=== PATIENT | female | born 1970 | race Caucasian/White ===

== ENCOUNTER 2016-10-20 11:35 | Emergency (ER) | payer OTHER ==
[2016-10-20 12:08] VITALS: BP 108/76
[2016-10-20] MEDS ORDERED: Albuterol/Ipratropium NEB.SOL* Albuterol 2.5 MG/Ipratropium 0.5 MG 3 ML INH ONE (12:45)
--- NOTE | 2016-10-20 13:18 | RAD ---
INDICATION: Cough and wheezing COMPARISON: None TECHNIQUE: PA and lateral views of the chest were obtained. FINDINGS: The heart and mediastinum are normal in size and contour. The lungs are grossly clear. There is no evidence of large pleural effusion. Visualized bones are normal for the patient's age. There is no radiographic evidence of free air beneath the diaphragm IMPRESSION: No radiographic evidence of acute cardiopulmonary disease.
--- NOTE | 2016-10-20 14:04 | UC ---
Throat Pain/Nasal Anthony HPI - HPI Summary HPI Summary: FOUR DAYS OF COUGH, WHEEZING, SINUS CONGESTION, EAR/FACIAL PRESSURE, NO FEVER, NO SORE THROAT. - History of Current Complaint Chief Complaint: UCRespiratory Stated Complaint: COUGH,CHEST CONGESTION Time Seen by Provider: 10/20/16 12:13 Hx Obtained From: Patient Hx Last Menstrual Period: 10/15/16 Onset/Duration: Gradual Onset, Lasting Days, Still Present Severity: Moderate Cough: Productive Associated Signs & Symptoms: Positive: Hoarseness, Sinus Discomfort, Nasal Discharge - Epiglottits Risk Factors Epiglottis Risk Factors: Negative - Allergies/Home Medications Allergies/Adverse Reactions: Allergies Allergy/AdvReac Type Severity Reaction Status Date / Time Ciprofloxacin Allergy Swelling Verified 02/21/16 20:42 Erythromycin Allergy Rash Verified 02/21/16 20:42 Home Medications: Home Medications Atorvastatin* [Lipitor 10 MG*] 10/20/16 [History] Dextromethorphan-Phenylephrine [Day Time Multi-Symptom Co 10-5-325 mg] [History] Levothyroxine TAB* [Synthroid 88 MCG TAB*] 10/20/16 [History] [id number]-Hb-[id number] W/ APAP [Delsym Cough + Cold D... 5-23-392-325 mg/10Ml] [History] PMH/Surg Hx/FS Hx/Imm Hx Previously Healthy: Yes Endocrine History Of: Reports: Thyroid Disease, Hypothyroidism Denies: Diabetes Cardiovascular History Of: Reports: Cardiac Disorders - high cholesterol Denies: Hypertension Respiratory History Of: Reports: Bronchitis Denies: COPD, Asthma GI/ History Of: Denies: Ulcer - Surgical History Surgical History: Yes Surgery Procedure, Year, and Place: TONSILLECTOMY, 2 c sections, hemorrhiod, carpal tunnel - Family History Known Family History: Positive: Cardiac Disease, Hypertension, Diabetes - Social History Occupation: Employed Full-time Lives: With Family Alcohol Use: Occasionally Substance Use Type: None Smoking Status (MU): Heavy Every Day Tobacco Smoker Household Exposure Type: Cigarettes Cessation Counseling: Counseled 3+Min - 10 Min Review of Systems Constitutional: Fatigue Skin: Negative Eyes: Negative ENT: Nasal Discharge Respiratory: Cough Cardiovascular: Negative Gastrointestinal: Negative Genitourinary: Negative Motor: Negative Neurovascular: Negative Musculoskeletal: Negative Neurological: Negative Psychological: Negative All Other Systems Reviewed And Are Negative: Yes Physical Exam Triage Information Reviewed: Yes Appearance: No Pain Distress, Well-Nourished, Ill-Appearing Vital Signs: Initial Vital Signs Temp 98.2 F 10/20/16 12:01 Pulse 75 10/20/16 12:01 Resp 18 10/20/16 12:01 BP 108/76 10/20/16 12:01 Pulse Ox 99 10/20/16 12:01 Vital Signs Reviewed: Yes Eye Exam: Normal Eyes: Positive: Conjunctiva Clear ENT: Positive: Hearing grossly normal, Pharynx normal, TM bulging, TM dull Dental Exam: Normal Neck exam: Normal Neck: Positive: Supple, Nontender, No Lymphadenopathy Respiratory: Positive: Chest non-tender, No respiratory distress, No accessory muscle use, Wheezing Cardiovascular Exam: Normal Cardiovascular: Positive: RRR, No Murmur, Pulses Normal, Brisk Capillary Refill Abdominal Exam: Normal Abdomen Description: Positive: Nontender, No Organomegaly Musculoskeletal Exam: Normal Musculoskeletal: Positive: Strength Intact, ROM Intact Neurological Exam: Normal Psychological Exam: Normal Psychological: Positive: Normal Response To Family Skin Exam: Normal Throat Pain/Nasal Course/Dx - Differential Dx/Diagnosis Differential Diagnosis/HQI/PQRI: Otitis Media, Pharyngitis, Sinusitis, Tonsillitis, URI Provider Diagnoses: SINUSITIS. BRONCHITIS. BRONCHOSPASM Discharge - Discharge Plan Condition: Stable Disposition: HOME Prescriptions: Albuterol HFA INHALER* [Ventolin HFA Inhaler*] 1 - 2 puff INH Q4H PRN #1 mdi PRN Reason: Wheezing Amoxicillin/Clavulanate TAB* [Augmentin TAB 875*] 875 mg PO BID #20 tab Patient Education Materials: Sinusitis (ED), Acute Bronchitis (ED), Bronchospasm (ED) Forms: *Work Release Referrals: [facility] [place] [facility] [Outside] No Primary Care Phys,NOPCP [Primary Care Provider] -
== END 2016-10-20 13:57 | disposition home or self-care (01) ==
LOC: UCEAST 11:35
DX: J32.9 Chronic sinusitis, unspecified (principal); J40 Bronchitis, not specified as acute or chronic; F17.210 Nicotine dependence, cigarettes, uncomplicated; E03.9 Hypothyroidism, unspecified; E78.00 Pure hypercholesterolemia, unspecified; Z88.3 Allergy status to other anti-infective agents
CPT/HCPCS: 71020; 99212; A9270-GY; G0463

== ENCOUNTER 2019-04-06 17:51 | Emergency (ER) | payer OTHER ==
[2019-04-06 18:11] VITALS: BP 161/95
[2019-04-06] MEDS ORDERED: Famotidine TAB* 20 MG PO ONE (18:22)
[2019-04-06] MEDS ORDERED: Al Hydrox/Mg Hydrox/Simet LIQ* 30 ML UDC PO ONE (18:22)
[2019-04-06] MEDS ORDERED: Lidocaine 2% VISCOUS* 15 ML UDC PO ONE (18:22)
--- NOTE | 2019-04-06 18:22 | UC ---
Abdominal Pain Female HPI - HPI Summary HPI Summary: 49 yo female presents with abdominal pain. She tells me that she has a history of GERD and takes daily omeprazole with good relief. On 04/04 she had an episode of severe nausea after eating and had some dry heaving, but no belly pain. Yesterday she felt fine. This morning she forgot to take her omeprazole. She ate lunch and had severe nausea about 30minutes after. She drank water and baking soda and felt a little bit better, but then about an hour later began to notice abdominal "bloating" and had RUQ and epigastric pain that was 5/10. As time progressed her pain became 8/10. She went home from work around 173- and took a gas-x with no relief - prompting her visit to . She last ate around 1130 this morning. She has not vomited, but feels nauseous. Denies fever, chills , SOB, chest pain, diarrhea, dysuria. - History of Current Complaint Chief Complaint: UCAbdominalPain Stated Complaint: ABDOMINAL PAIN Time Seen by Provider: 04/06/19 18:22 Hx Obtained From: Patient Hx Last Menstrual Period: 10/15/16 Onset/Duration: Sudden Onset Severity Initially: Moderate Severity Currently: Severe Pain Intensity: 9 Pain Scale Used: 0-10 Numeric Allergies/Adverse Reactions: Allergies Allergy/AdvReac Type Severity Reaction Status Date / Time ciprofloxacin [From Cipro] Allergy Intermediate Rash Verified 04/06/19 18:11 erythromycin base Allergy Rash Verified 04/06/19 18:11 Home Medications: Home Medications Valacyclovir HCl [Valtrex] 500 mg PO SEE INSTRUCTIONS 04/06/19 [History Confirmed 04/06/19] PMH/Surg Hx/FS Hx/Imm Hx Endocrine History: Hypothyroidism Respiratory History: Asthma GI/ History: Gastroesophageal Reflux - Surgical History Surgical History: Yes Surgery Procedure, Year, and Place: TONSILLECTOMY, 2 c sections, hemorrhiod, carpal tunnel - Family History Known Family History: Positive: Cardiac Disease, Hypertension, Diabetes - Social History Occupation: Employed Full-time Lives: With Family Alcohol Use: Weekly Substance Use Type: None Smoking Status (MU): Former Smoker Household Exposure Type: Cigarettes Review of Systems All Other Systems Reviewed And Are Negative: No Constitutional: Positive: Negative Skin: Positive: Negative Eyes: Positive: Negative ENT: Positive: Negative Respiratory: Positive: Negative Cardiovascular: Positive: Negative Gastrointestinal: Positive: Abdominal Pain, Nausea Genitourinary: Positive: Negative Neurological: Positive: Negative Psychological: Positive: Negative Physical Exam - Summary Physical Exam Summary: GENERAL: Moderate pain distress. Anxious. SKIN: No rashes, sores, lesions, or open wounds. NECK: Supple. Nontender. No lymphadenopathy. CHEST: CTAB. No r/r/w. No accessory muscle use. Breathing comfortably and in no distress. CV: RRR. Without m/r/g. Pulses intact. Cap refill <2seconds ABDOMEN: Significant RUQ TTP. Positive mejía sign. Slight abdominal guarding throughout. Mild epigastric TTP. No CVA tenderness. Bowel sounds present NEURO: Alert. PSYCH: Age appropriate behavior. Triage Information Reviewed: Yes Vital Signs: Initial Vital Signs Temp 97.7 F 04/06/19 18:06 Pulse 80 04/06/19 18:06 Resp 22 04/06/19 18:06 BP 161/95 04/06/19 18:06 Pulse Ox 100 04/06/19 18:06 Vital Signs Reviewed: Yes Abd Pain Female Course/Dx - Course Course Of Treatment: EKG 68bpm NSR. No ST changes as read by Dr. Bailey. Her history and exam is most consistent with biliary pathology - possible cholecystitis. I recommended transfer to the ED for further evaluation including likely labwork , imaging, and possible surgical consult. Pt was agreeable to this. She was given GI cocktail with pepcid, maalox, and viscous lidocaine with no change in her symptoms. She was then given 1L NS, 4mg zofran, and 4mg morphine with improvement of her discomfort. Andrés was called and she left via EMS in stable condition. - Differential Dx/Diagnosis Provider Diagnosis: RUQ pain Discharge ED - Sign-Out/Discharge Documenting (check all that apply): Patient Departure All imaging exams completed and their final reports reviewed: No Studies - Discharge Plan Condition: Stable Disposition: TRANS HIGHER LVL OF CARE FAC Referrals: No Primary Care Phys,NOPCP [Primary Care Provider] - - Billing Disposition and Condition Condition: STABLE Disposition: Trans Higher Lvl of Care Fac
[2019-04-06] MEDS ORDERED: Ondansetron INJ* 2 MG/ML VIAL IV ONE (18:52)
[2019-04-06] MEDS ORDERED: Morphine 4 MG/ML VIAL (1 ml) 4 MG/ML VIAL IV ONE (18:52)
[2019-04-06] MEDS ORDERED: NS 0.9% 1000 ML** 1,000 ML IV ONE (18:52)
[2019-04-06] MEDS ORDERED: Morphine 10 MG/ML VIAL (1 ml) IV ONE (19:00)
== END 2019-04-06 19:15 | disposition short-term general hospital (02) ==
LOC: UCEAST 17:51
DX: R10.11 Right upper quadrant pain (principal); E03.9 Hypothyroidism, unspecified; K21.9 Gastro-esophageal reflux disease without esophagitis; J45.909 Unspecified asthma, uncomplicated; Z87.891 Personal history of nicotine dependence
CPT/HCPCS: 96374; 96375; 99213; A9270-GY; G0463; J2270; J2405

== ENCOUNTER 2019-04-06 19:33 | Emergency (ER) | payer OTHER ==
[2019-04-06] MEDS ORDERED: Ondansetron INJ* 2 MG/ML VIAL IV ONE (20:21)
[2019-04-06] MEDS ORDERED: Ketorolac INJ* 15 MG/ML 1 ML VIAL IM ONE (20:21)
[2019-04-06] MEDS ORDERED: NS 0.9% 1000 ML** 1,000 ML IV ONE (20:21)
--- NOTE | 2019-04-06 20:21 | ED ---
Abdominal Pain/Female - HPI Summary HPI Summary: Patient is a 49 y/o F presenting to [facility] with complaints of RUQ/epigastric pain that onset today, 04/06/19, after lunch. She states that she had a healthy, non-fatty lunch. Pain radiates to her right flank area. Patient states that she had N/V with no abdominal pain two days ago, 04/04/19. Today, patient had nausea with no vomiting. She reports no similar prior episodes. Patient denies change in bowel movements, urinary Sx, chest pain, SOB. PMHx of hypothyroidism, HLD, and GERD noted. She states that she had taken GasX before arrival. Patient was evaluated at [facility] where she was given 4 mg Zofran and 4 mg morphine with mild relief. Patient has Hx of gallbladder polyps but still has gallbladder present. On triage, pain is rated 5/10. Home medications and allergies are reviewed. - History of Current Complaint Chief Complaint: EDAbdPain Stated Complaint: ABD PAIN PER EMS Hx Obtained From: Patient Hx Last Menstrual Period: 10/15/16 Onset/Duration: Lasting Hours, Still Present Timing: Hours Severity Currently: Moderate Pain Intensity: 5 Pain Scale Used: 0-10 Numeric Location: Discrete At: RUQ, Epigastric Radiates: Yes Radiates to: Flank - right Associated Signs and Symptoms: Positive: Nausea, Vomiting - none today, Other: - negative - SOB. Negative: Chest Pain, Constipation, Urinary Symptoms, Diarrhea Allergies/Adverse Reactions: Allergies Allergy/AdvReac Type Severity Reaction Status Date / Time ciprofloxacin [From Cipro] Allergy Intermediate Rash Verified 04/06/19 19:42 erythromycin base Allergy Rash Verified 04/06/19 19:42 PMH/Surg Hx/FS Hx/Imm Hx Endocrine/Hematology History: Reports: Hx Thyroid Disease Denies: Hx Diabetes Cardiovascular History: Denies: Hx Hypertension Respiratory History: Denies: Hx Asthma, Hx Chronic Obstructive Pulmonary Disease (COPD) GI History: Denies: Hx Ulcer - Surgical History Surgery Procedure, Year, and Place: TONSILLECTOMY, 2 c sections, hemorrhiod, carpal tunnel Infectious Disease History: No Infectious Disease History: Denies: Hx Clostridium Difficile, Hx Hepatitis, Hx Human Immunodeficiency Virus (HIV), Hx of Known/Suspected MRSA, Hx Shingles, Hx Tuberculosis, Hx Known/ Suspected VRE, Hx Known/Suspected VRSA, History Other Infectious Disease, Traveled Outside the [place] in Last 30 Days - Family History Known Family History: Positive: Cardiac Disease, Hypertension, Diabetes - Social History Alcohol Use: Weekly Substance Use Type: Reports: None Smoking Status (MU): Former Smoker Review of Systems Negative: Chest Pain Negative: Shortness Of Breath Gastrointestinal: Other - negative - changes in bowel movements Positive: Abdominal Pain, Vomiting, Nausea Positive: no symptoms reported - no urinary Sx reported All Other Systems Reviewed And Are Negative: Yes Physical Exam - Summary Physical Exam Summary: General: Well-developed, Well-nourished female. No acute distress. HEENT: Normocephalic, Atraumatic. Eyes: Conjuctiva normal, PERRL. Ears: TMs within normal limits. Nares: (-) discharge, (-) erythema. Oropharynx: Clear, mucous membranes moist, (-) exudates. Neck: Soft, FROM, (-) lymphadenopathy, (-) thyromegaly, (-) JVD. Cardiovascular: Normal sinus rhythm, (-) murmur. Lungs: Clear to auscultation bilaterally (-) wheezes, (-) rales, (-) rhonchi. Abdomen: Soft, RUQ tenderness, positive Pastrana's sign, non-distended, (-) organomegaly, normal bowel sounds. Back: (-) CVA tenderness Extremities: No edema. Skin: Warm, dry, (-) rash. Neuro: Alert and oriented x3, no focal deficits. Psychiatric: Mood normal, affect normal. Triage Information Reviewed: Yes Vital Signs On Initial Exam: Initial Vitals Temp Pulse Resp BP Pulse Ox 97.9 F 70 18 157/91 100 04/06/19 19:37 04/06/19 19:37 04/06/19 19:37 04/06/19 19:37 04/06/19 19:37 Vital Signs Reviewed: Yes Diagnostics - Vital Signs Vital Signs Temp Pulse Resp BP Pulse Ox 04/06/19 19:37 97.9 F 70 18 157/91 100 - Laboratory Result Diagrams: 04/06/19 20:32 04/06/19 20:32 Lab Statement: Any lab studies that have been ordered have been reviewed, and results considered in the medical decision making process. - CT CT ABD/PEL CT Interpretation Completed By: Radiologist Summary of CT Findings: IMPRESSION: There are echogenic calculi in the gallbladder lumen consistent with. cholelithiasis but no abnormal gallbladder wall thickening and negative. sonographic Pastrana's and therefore not specific for acute cholecystitis. THIS REPORT WAS REVIEWED BY DR. LACY. - Ultrasound ABDOMEN US Ultrasound Interpretation Completed By: Radiologist Summary of Ultrasound Findings: IMPRESSION: There are echogenic calculi in the gallbladder lumen consistent with. cholelithiasis but no abnormal gallbladder wall thickening and negative. sonographic Pastrana's and therefore not specific for acute cholecystitis. THIS REPORT WAS REVIEWED BY DR. LACY. Re-Evaluation - Re-Evaluation First Eval Re-Evaluation Time: 22:30 Change: Improved Comment: Sx are better after medications. Abdominal Pain Fem Course/Dx - Course Course Of Treatment: Patient is a 49 y/o F presenting to [facility] with complaints of RUQ/epigastric pain that onset today, 04/06/19, after lunch. She states that she had a healthy, non-fatty lunch. Pain radiates to her right flank area. Patient states that she had N/V with no abdominal pain two days ago, 04/04/19. Today, patient had nausea with no vomiting. She reports no similar prior episodes. Patient denies change in bowel movements, urinary Sx, chest pain, SOB. PMHx of hypothyroidism, HLD, and GERD noted. She states that she had taken GasX before arrival. Patient was evaluated at [facility] where she was given 4 mg Zofran and 4 mg morphine with mild relief. Patient has Hx of gallbladder polyps but still has gallbladder present. On physical exam, RUQ tenderness and positive Pastrana's sign noted. Bloodwork was obtained. Abnormal values include absolute neuts 8.4, glucose 104, AST 11, lipase < 10. Beta HCG was negative. UA was negative. ABDOMEN US IMPRESSION: There are echogenic calculi in the gallbladder lumen consistent with. cholelithiasis but no abnormal gallbladder wall thickening and negative. sonographic Pastrana's and therefore not specific for acute cholecystitis. THIS REPORT WAS REVIEWED BY DR. LACY. During ED course, patient was given Zofran 4 mg IV and toradol 15 mg IM. Sx are better after medications. Patient is discharged to home and will follow up with PCP within three days. - Diagnoses Provider Diagnoses: Biliary colic, Cholelithiasis Discharge ED - Sign-Out/Discharge Documenting (check all that apply): Patient Departure - discharge Patient Received Moderate/Deep Sedation with Procedure: No - Discharge Plan Condition: Stable Disposition: HOME Patient Education Materials: Biliary Colic (ED), Gallstones (ED) Referrals: Care [facility] [Outside] - 3 Days Additional Instructions: Please follow up with your primary care physician within three days. Please return to ED for any new or worsening symptoms. - Billing Disposition and Condition Condition: STABLE Disposition: Home - Attestation Statements Document Initiated by Kennedie: Yes Documenting Scribe: TELLY EGAN Provider For Whom Mary is Documenting (Include Credential): MARGARITA LACY MD Scribe Attestation: ITELLY, scribed for MARGARITA LACY MD on 04/08/19 at 2012. Scribe Documentation Reviewed: Yes Provider Attestation: The documentation as recorded by the scribeTELLY accurately reflects the service I personally performed and the decisions made by me, MARGARITA LACY MD Status of Scribe Document: Ready
[2019-04-06 20:40] LABS: ABS Basophils 0.1 10^3/ul (0-0.2); ABS Eosinophils 0.1 10^3/ul (0-0.6); ABS Lymphocytes 1.6 10^3/ul (1.0-4.8); ABS Monocytes 0.7 10^3/ul (0-0.8); ABS Neutrophils 8.4 10^3/ul (1.5-7.7); Eosinophil % 0.5 %; Hematocrit 37 % (35-47); Hemoglobin 12.9 g/dL (12.0-16.0); Lymphocyte % 14.6 %; Mean Corpuscular HGB Conc 35 g/dL (31-36); Mean Corpuscular Hemoglobin 31 pg (27-31); Mean Corpuscular Volume 88 fL (80-97); Nucleated Red Blood Cells % 0.1; Platelet Count 287 10^3/uL (150-450); Red Blood Count 4.18 10^6 /uL (3.70-4.87); Red Cell Distribution Width 14 % (10-15); White Blood Count 10.8 10^3/uL (3.5-10.8)
[2019-04-06 20:46] LABS: Urine Appearance Clear; Urine Bilirubin Negative (Negative); Urine Blood Negative (Negative); Urine Color Yellow; Urine Glucose Negative (Negative); Urine Ketones Negative (Negative); Urine Nitrite Negative (Negative); Urine Protein Negative (Negative); Urine Specific Gravity 1.009 (1.010-1.030); Urine Urobilinogen Negative (Negative)
[2019-04-06 21:03] LABS: HCG Pregnancy < 0.60 mIU/mL
[2019-04-06 21:22] LABS: ALT 9 U/L (7-52); AST 11 U/L (13-39); Albumin 4.3 g/dL (3.2-5.2); Alkaline Phosphatase 52 U/L (34-104); Anion Gap 6 mmol/L (2-11); BUN/Creatinine Ratio 17.2 (8-20); Blood Urea Nitrogen 10 mg/dL (6-24); CO2 Carbon Dioxide 28 mmol/L (22-32); Calcium 9.1 mg/dL (8.6-10.3); Chloride 106 mmol/L (101-111); EGFR African American 134.8 (>60); EGFR Non-African American 111.4 (>60); Globulin 2.2 g/dL (2-4); Glucose 104 mg/dL (70-100); Sodium 140 mmol/L (135-145); Total Protein 6.5 g/dL (6.4-8.9)
[2019-04-07 01:00] VITALS: BP 125/71
== END 2019-04-07 00:59 | disposition home or self-care (01) ==
LOC: ED 19:33
DX: K80.70 Calculus of gallbladder and bile duct without cholecystitis without obstruction (principal); R10.11 Right upper quadrant pain; R11.2 Nausea with vomiting, unspecified; E03.9 Hypothyroidism, unspecified; Z87.891 Personal history of nicotine dependence
CPT/HCPCS: 36415; 76705; 80053; 81003; 83605; 83690; 84702; 85025; 96372; 96374; 99283; J1885; J2405